=== PATIENT | female | born 1980 | race Hispanic/Latino ===

== ENCOUNTER 2017-09-22 17:12 | Emergency (ER) | payer SELFPAY ==
--- NOTE | 2017-09-22 18:13 | Emergency Department Report ---
Chief Complaint: Medical Clearance Stated Complaint: BAG LEAKING Time Seen by Provider: 09/22/17 18:09 - HPI History of Present Illness: Ms. Armenta needs colostomy bag supplies. She has had an ostomy for several years as a complication of Crohn's disease. She denies any pain. Due to lack of insurance she is unable to receive supplies. Today her colostomy bag is leaking. The bag has been in place for the last 5 days. - Exam Vital Signs: Vital Signs 09/22/17 17:17 Temperature 98.9 F Pulse Rate 76 Respiratory 16 Rate Blood Pressure 98/38 O2 Sat by Pulse 100 Oximetry Physical Exam: Patient is well-appearing and in no acute distress Abdomen soft nontender nondistended ostomy bag is in place with normal output Patient ambulates without difficulty. Patient is alert insightful cooperative appropriate pleasant MSE screening note: Focused history and physical exam performed. Due to findings the following was ordered: ED Medical Decision Making - Medical Decision Making I have consulted our nursing staff in order to arrange for ostomy supplies. No acute medical issues otherwise. dc'd home ED Disposition for MSE Clinical Impression: Complication of ostomy Disposition: DC-01 TO HOME OR SELFCARE Is pt being admited?: No Does the pt Need Aspirin: No Condition: Stable Referrals: [facility] [Outside] - 3-5 Days Time of Disposition: 18:12
[2017-09-22 18:36] VITALS: BP 100/50
== END 2017-09-22 18:57 | disposition home or self-care (01) ==
LOC: ED 17:12
DX: K94.09 Other complications of colostomy (principal)
CPT/HCPCS: 99282

== ENCOUNTER 2017-10-02 14:14 | Emergency (ER) | payer MEDICAID ==
[2017-10-02 14:22] VITALS: BP 100/54
--- NOTE | 2017-10-02 15:59 | Emergency Department Report ---
ED General Adult HPI - General Chief complaint: Medical Clearance Stated complaint: NEED COLOSCOPY BAG Time Seen by Provider: 10/02/17 15:25 Source: patient, EMS Mode of arrival: Ambulatory Limitations: No Limitations - History of Present Illness Initial comments: Patient is a 37-year-old female who is presenting with a complaint that she needs colostomy materials. Patient is being treated for mental health issues and ran out of her colostomy supplies there. Patient was sent here to have her colostomy changed. Patient has no other complaints at this time - Related Data Previous Rx's Medication Instructions Recorded Last Taken Type Acyclovir [Zovirax Cap] 2 cap PO TID #42 capsule 06/23/14 Unknown Rx Benzonatate [Tessalon Perles] 100 mg PO Q8HR PRN #12 capsule 01/10/15 Unknown Rx Ciprofloxacin HCl [Cipro] 500 mg PO Q12H #10 tab 01/10/15 Unknown Rx Ibuprofen [Motrin 400 MG tab] 400 mg PO Q8H PRN #20 tablet 01/10/15 Unknown Rx Allergies Allergy/AdvReac Type Severity Reaction Status Date / Time amoxicillin [Amoxicillin] Allergy Hives Verified 06/23/14 01:28 codeine Allergy Unknown Verified 06/23/14 01:28 sulfamethoxazole Allergy Hives Verified 06/23/14 01:28 [From Bactrim] trimethoprim [From Bactrim] Allergy Hives Verified 06/23/14 01:28 vancomycin Allergy Hives Verified 06/23/14 01:28 ED Review of Systems ROS: Stated complaint: NEED COLOSCOPY BAG Other details as noted in HPI Comment: All other systems reviewed and negative ED Past Medical Hx - Past Medical History Previous Medical History?: Yes Additional medical history: Crohns disease, Herpes simplex virus - Surgical History Past Surgical History?: Yes Additional Surgical History: Colon surgery, colostomy - Social History Smoking Status: Never Smoker Substance Use Type: Prescribed - Medications Home Medications: Home Medications Medication Instructions Recorded Confirmed Last Taken Type Acyclovir [Zovirax Cap] 2 cap PO TID #42 capsule 06/23/14 Unknown Rx Benzonatate [Tessalon Perles] 100 mg PO Q8HR PRN #12 capsule 01/10/15 Unknown Rx Ciprofloxacin HCl [Cipro] 500 mg PO Q12H #10 tab 01/10/15 Unknown Rx Ibuprofen [Motrin 400 MG tab] 400 mg PO Q8H PRN #20 tablet 01/10/15 Unknown Rx ED Physical Exam - General Limitations: No Limitations General appearance: alert, in no apparent distress - Head Head exam: Present: atraumatic, normocephalic - Eye Eye exam: Present: normal appearance - ENT ENT exam: Present: mucous membranes moist - Neck Neck exam: Present: normal inspection - Respiratory Respiratory exam: Present: normal lung sounds bilaterally. Absent: respiratory distress - Cardiovascular Cardiovascular Exam: Present: regular rate, normal rhythm. Absent: systolic murmur, diastolic murmur, rubs, gallop - GI/Abdominal GI/Abdominal exam: Present: soft, normal bowel sounds, other (patient has a ostomy site present on the right lower quadrant) - Extremities Exam Extremities exam: Present: normal inspection - Back Exam Back exam: Present: normal inspection - Neurological Exam Neurological exam: Present: alert, oriented X3 - Psychiatric Psychiatric exam: Present: normal affect, normal mood - Skin Skin exam: Present: warm, dry, intact, normal color. Absent: rash ED Course Vital Signs 10/02/17 14:19 Temperature 97.8 F Pulse Rate 79 Respiratory 18 Rate Blood Pressure 100/54 O2 Sat by Pulse 99 Oximetry ED Medical Decision Making - Medical Decision Making Patient was given a colostomy bag will be discharged home Critical care attestation.: If time is entered above; I have spent that time in minutes in the direct care of this critically ill patient, excluding procedure time. ED Disposition Clinical Impression: Colostomy care Disposition: DC-01 TO HOME OR SELFCARE Is pt being admited?: No Does the pt Need Aspirin: No Condition: Stable Referrals: PRIMARY CARE, [Primary Care Provider] - 3-5 Days
== END 2017-10-02 16:06 | disposition home or self-care (01) ==
LOC: ED 14:14
DX: Z93.3 Colostomy status (principal); K50.90 Crohn's disease, unspecified, without complications; Z88.1 Allergy status to other antibiotic agents; Z88.2 Allergy status to sulfonamides; Z88.5 Allergy status to narcotic agent
CPT/HCPCS: 99283

== ENCOUNTER 2022-03-05 11:54 | Emergency (ER) | payer SELFPAY ==
[2022-03-05 12:54] VITALS: BP 109/59
--- NOTE | 2022-03-05 12:56 | Emergency Department Report ---
Suture/Staple Removal - HPI Stated Complaint: STICHES REMOVAL Time Seen by Provider: 03/05/22 12:53 When Sutures or Porfirio Placed: 11-14 Days Ago Wound Location: left side chin ED Review of Systems ROS: Stated complaint: STICHES REMOVAL Other details as noted in HPI Comment: All other systems reviewed and negative Constitutional: denies: chills, fever Eyes: denies: eye pain, eye discharge, vision change ENT: denies: ear pain, throat pain Respiratory: denies: cough, shortness of breath, wheezing Cardiovascular: denies: chest pain, palpitations Endocrine: no symptoms reported Gastrointestinal: denies: abdominal pain, nausea, diarrhea Genitourinary: denies: urgency, dysuria, discharge Musculoskeletal: denies: back pain, joint swelling, arthralgia Skin: denies: rash, lesions Neurological: denies: headache, weakness, paresthesias Psychiatric: denies: anxiety, depression Hematological/Lymphatic: denies: easy bleeding, easy bruising ED Past Medical Hx - Past Medical History Additional medical history: Crohns disease, Herpes simplex virus - Surgical History Additional Surgical History: Colon surgery, colostomy - Social History Smoking Status: Never Smoker Substance Use Type: Prescribed - Medications Home Medications: Home Medications Medication Instructions Recorded Confirmed Last Taken Type Acyclovir [Zovirax Cap] 2 cap PO TID #42 capsule 06/23/14 Unknown Rx Benzonatate [Tessalon Perles] 100 mg PO Q8HR PRN #12 capsule 01/10/15 Unknown Rx Ciprofloxacin HCl [Cipro] 500 mg PO Q12H #10 tab 01/10/15 Unknown Rx Ibuprofen [Motrin 400 MG tab] 400 mg PO Q8H PRN #20 tablet 01/10/15 Unknown Rx Suture Removal Exam - Exam General: Vital signs noted. No distress. Alert and acting appropriately. Wound: No Pathologic Erythema, No Tenderness, No Drainage, No Pus, No Wound Dehiscence Other Systems: All other systems reviewed and are unremarkable. ED Course Vital Signs 03/05/22 12:52 Temperature 98.9 F Pulse Rate 104 H Respiratory 14 Rate Blood Pressure 109/59 [Right] O2 Sat by Pulse 99 Oximetry - Reevaluation(s) Reevaluation #1: 03/05/22 12:53 Patient is speaking in full sentences with no signs of distress noted. ED Recheck MDM - Medical Decision Making This is a 41-year-old female that presents with suture removal. She is stable and was examined by me. Suture removal has been placed patient stated in Facility. Unsure how many stitches has been placed. Due to this patient was instructed to go to [facility] for suture removal. No signs of wound dehiscence, drainage, or cellulitis. Patient was referred to Follow-up with a primary care doctor in 3-5 days or if symptoms worsen and continue return to emergency room as soon as possible. At time of discharge, the patient does not seem toxic or ill in appearance. No acute signs of distress noted. Patient agrees to discharge treatment plan of care. No further questions noted by the patient. Critical care attestation.: If time is entered above; I have spent that time in minutes in the direct care of this critically ill patient, excluding procedure time. ED Disposition Clinical Impression: Visit for wound check Disposition: 01 HOME / SELF CARE / HOMELESS Is pt being admited?: No Does the pt Need Aspirin: No Condition: Stable Additional Instructions: Follow-up with a primary care doctor in 3-5 days or if symptoms worsen and continue return to emergency room as soon as possible. It is best that you go to the facility that the sutures has been placed to accurately and properly remove the sutures. Referrals: PRIMARY MD LANCE [Referring] - 3-5 Days ANANYA FERRELL MD [Staff Physician] - 3-5 Days Time of Disposition: 12:56
== END 2022-03-05 13:52 | disposition home or self-care (01) ==
LOC: ED 11:54
DX: S01.81XD Laceration without foreign body of other part of head, subsequent encounter (principal); X58.XXXD Exposure to other specified factors, subsequent encounter
CPT/HCPCS: 99282

== ENCOUNTER 2022-03-14 12:42 | Emergency (ER) | payer SELFPAY ==
[2022-03-14 14:00] VITALS: BP 111/53
[2022-03-14] MEDS ORDERED: FLUORESCEIN 1 MG STRIP OP ONE (18:01)
[2022-03-14] MEDS ORDERED: TETRACAINE 0.5% OPHTH SOLN 4ML OU ONE (18:01)
[2022-03-14] MEDS ORDERED: traMADol 50 MG TAB PO ONE (18:37)
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
== END 2022-03-14 19:08 | disposition home or self-care (01) ==
LOC: ED 12:42
DX: H57.12 Ocular pain, left eye (principal); Z88.0 Allergy status to penicillin; Z88.6 Allergy status to analgesic agent
CPT/HCPCS: 99283